=== PATIENT | female | born 1950 | race African-American/Black ===

== ENCOUNTER 2016-10-05 09:56 | Outpatient (CLI) | payer MEDICARE, MEDICAID | END 2016-10-05 23:59 | DX: I10 Essential (primary) hypertension (principal); E78.5 Hyperlipidemia, unspecified; E11.51 Type 2 diabetes mellitus with diabetic peripheral angiopathy without gangrene; D64.9 Anemia, unspecified ==

== ENCOUNTER 2017-03-14 09:05 | Outpatient (CLI) | payer MEDICARE, MEDICAID ==
[2017-03-14 12:37] LABS: BASOPHILS % (AUTO) 0.5 %; EOSINOPHILS # (AUTO) 0.1 10^3/uL (0.0-0.7); EOSINOPHILS % (AUTO) 3.1 %; HCT - HEMATOCRIT 37.7 % (37.0-47.0); HGB - HEMOGLOBIN 12.6 g/dL (12.0-16.0); LYMPHOCYTES # (AUTO) 1.7 10^3/uL (1.5-3.5); LYMPHOCYTES % (AUTO) 35.3 %; MEAN CORPUSCULAR HEMOGLOBIN 26.2 pg (27.0-31.0); MEAN CORPUSCULAR HGB CONC 33.5 g/dL (32.0-36.0); MEAN CORPUSCULAR VOLUME 78.3 fL (81.0-99.0); MEAN PLATELET VOLUME 8.4 fL (7.9-10.8); MONOCYTES # (AUTO) 0.2 10^3/uL (0.0-1.0); MONOCYTES % (AUTO) 4.9 %; NEUTROPHILS # (AUTO) 2.7 10^3/uL (1.5-6.6); NEUTROPHILS % (AUTO) 56.2 %; NUCLEATED RED BLOOD CELLS AUTO 0.1 /100WBC; RED BLOOD COUNT 4.82 10^6/uL (4.20-5.40); RED CELL DISTRIBUTION WIDTH 14.8 % (12.0-15.0); UNCORRECTED WHITE BLOOD COUNT 4.7 x10^3/uL; WHITE BLOOD COUNT 4.7 x10^3/uL (4.8-10.8)
[2017-03-14 12:56] LABS: ALBUMIN/GLOBULIN RATIO 1.2 (1.0-2.2); BILIRUBIN,TOTAL 0.2 mg/dL (0.2-1.0); BUN - BLOOD UREA NITROGEN 12 mg/dL (6-20); CALCIUM 8.9 mg/dL (8.5-10.3); CARBON DIOXIDE - CO2 26 mmol/L (21-32); CHLORIDE 107 mmol/L (101-111); CHOL/HDL RATIO 3.7 (<4.4); CHOLESTEROL 207 mg/dL; CREATININE 0.7 mg/dL (0.4-1.0); GFR - MDRD 101 (>89); GLUCOSE 110 mg/dL (70-100); HDL CHOLESTEROL 56 mg/dL; LDL/HDL RATIO 2.3 (<4.4); POTASSIUM 3.9 mmol/L (3.5-5.0); SODIUM 139 mmol/L (135-145); TOTAL PROTEIN 7.3 g/dL (6.7-8.2); TRIGLYCERIDES 124 mg/dL; VLDL CHOLESTEROL 25 mg/dL
[2017-03-14 13:11] LABS: HEMOGLOBIN A1C 0.56 g/dL
== END 2017-03-14 09:06 | disposition home or self-care (01) ==
LOC: LAB.WCP 09:05
PROVIDERS: ATTEND Family Medicine
DX: E78.5 Hyperlipidemia, unspecified (principal); E11.51 Type 2 diabetes mellitus with diabetic peripheral angiopathy without gangrene; I10 Essential (primary) hypertension
CPT/HCPCS: 36415; 80053; 80061; 83036; 85025

== ENCOUNTER 2017-04-30 09:00 | Outpatient (CLI) | payer MEDICARE, MEDICAID ==
--- NOTE | 2017-05-01 18:53 | Mammography Report ---
DIGITAL SCREENING MAMMOGRAM: 04/30/2017 CLINICAL INDICATION: A 67-year-old for screening. COMPARISON: 04/2016, 04/2015, 03/2014, 08/2012, 03/2011, 10/2009. TECHNIQUE: Routine CC and MLO projections were obtained of the breasts. FINDINGS: The breasts demonstrate scattered fibroglandular densities bilaterally. Coarse and puncta te, typically benign calcifications are present. No suspicious masses, clustered microcalcifications , or regions of architectural distortion are identified. IMPRESSION: BENIGN FINDINGS. RECOMMENDATION: Routine annual screening unless otherwise clinically indicated. BI-RADS category 2, benign findings. STANDARD QUALIFYING STATEMENTS 1. This examination was reviewed with the aid of Computer-Aided Detection (CAD). 2. A negative or benign imaging report should not delay biopsy if clinically suspicious findings are present. Consider surgical consultation if warranted. More than 5% of cancers are not identified by i maging. 3. Dense breasts may obscure an underlying neoplasm. JOB #: [id number] EXT JOB #:[id number]
== END 2017-04-30 09:01 | disposition home or self-care (01) ==
LOC: DI 09:00
PROVIDERS: ATTEND Family Medicine
DX: Z12.31 Encounter for screening mammogram for malignant neoplasm of breast (principal)
CPT/HCPCS: 77067

== ENCOUNTER 2017-12-23 08:00 | Outpatient (CLI) | payer MEDICARE, MEDICAID ==
[2017-12-23 12:50] LABS: ALBUMIN 3.7 g/dL (3.2-5.5); ALBUMIN/GLOBULIN RATIO 1.1 (1.0-2.2); ALKALINE PHOSPHATASE 96 IU/L (42-121); ALT ALANINE AMINOTRANSFERASE 16 IU/L (10-60); AST ASPARTATE AMINOTRANSFERASE 21 IU/L (10-42); BILIRUBIN,TOTAL 0.5 mg/dL (0.2-1.0); BUN - BLOOD UREA NITROGEN 15 mg/dL (6-20); CALCIUM 8.6 mg/dL (8.5-10.3); CARBON DIOXIDE - CO2 25 mmol/L (21-32); CHLORIDE 105 mmol/L (101-111); CHOL/HDL RATIO 3.7 (<4.4); CHOLESTEROL 203 mg/dL; CREATININE 0.6 mg/dL (0.4-1.0); GFR - MDRD 120 (>89); GLUCOSE 102 mg/dL (70-100); HDL CHOLESTEROL 55 mg/dL; LDL CHOLESTEROL,CALCULATED 131 mg/dL; LDL/HDL RATIO 2.4 (<4.4); SODIUM 139 mmol/L (135-145); TOTAL PROTEIN 7.1 g/dL (6.7-8.2); VLDL CHOLESTEROL 17 mg/dL
[2017-12-23 12:53] LABS: BASOPHILS % (AUTO) 0.6 %; EOSINOPHILS # (AUTO) 0.1 10^3/uL (0.0-0.7); EOSINOPHILS % (AUTO) 2.7 %; HGB - HEMOGLOBIN 11.5 g/dL (12.0-16.0); LYMPHOCYTES # (AUTO) 1.9 10^3/uL (1.5-3.5); LYMPHOCYTES % (AUTO) 40.8 %; MEAN CORPUSCULAR HEMOGLOBIN 26.5 pg (27.0-31.0); MEAN CORPUSCULAR HGB CONC 33.8 g/dL (32.0-36.0); MEAN CORPUSCULAR VOLUME 78.4 fL (81.0-99.0); MEAN PLATELET VOLUME 8.3 fL (7.9-10.8); MONOCYTES # (AUTO) 0.3 10^3/uL (0.0-1.0); MONOCYTES % (AUTO) 6.4 %; NEUTROPHILS # (AUTO) 2.3 10^3/uL (1.5-6.6); NEUTROPHILS % (AUTO) 49.5 %; PLT - PLATELET COUNT 276 10^3/uL (130-450); RED BLOOD COUNT 4.33 10^6/uL (4.20-5.40); RED CELL DISTRIBUTION WIDTH 14.6 % (12.0-15.0); WHITE BLOOD COUNT 4.7 x10^3/uL (4.8-10.8)
[2017-12-23 12:57] LABS: HB2 TOTAL 12.6 g/dL; HEMOGLOBIN A1C 0.53 g/dL
== END 2017-12-23 08:01 | disposition home or self-care (01) ==
LOC: LAB.WCP 08:00
PROVIDERS: ATTEND Family Medicine
DX: I10 Essential (primary) hypertension (principal); E78.5 Hyperlipidemia, unspecified; E11.51 Type 2 diabetes mellitus with diabetic peripheral angiopathy without gangrene
CPT/HCPCS: 36415; 80053; 80061; 82043; 83036; 83721; 85025

== ENCOUNTER 2018-05-15 08:36 | Outpatient (CLI) | payer MEDICARE, MEDICAID ==
--- NOTE | 2018-05-19 08:04 | DEXA Report ---
Reason: POSTMENOPAUSAL STATUS Procedure Date: 05/15/2018 Accession Number: [id number] / [id number] Procedure: DEX - Dexa Spine and/or Hip CPT Code: FULL RESULT: EXAM: Dexa Spine and/or Hip DATE: 05/15/2018 9:01 AM CLINICAL HISTORY: POSTMENOPAUSAL STATUS TECHNIQUE: Dual energy x-ray absorptiometry (DXA) was performed on a [email or web address] System. Regions measured are the AP Spine, femoral neck, and if needed forearm. COMPARISON: 05/14/2016. In accordance with the International Society for Clinical Densitometry (ISCD) guidelines, data from previous exams may be reanalyzed using current recommendations and techniques. This is done to allow a more accurate basis for comparison with the current study. FINDINGS: The data for the lumbar spine is as follows: BMD (g/cm/cm) T-SCORE Z-SCORE REGION L1 1.194 0.5 0.4 L2 1.332 1.1 0.9 L3 1.365 1.4 1.2 L4 1.381 1.5 1.3 TOTAL 1.315 1.1 0.9 NOTE: All evaluable vertebrae are used for classification The data for the hip is as follows: BMD (g/cm/cm) T-SCORE Z-SCORE REGION Neck 0.909 -0.9 -0.9 TOTAL 1.003 0.0 -0.4 NOTE: The femoral neck or total proximal femur, whichever is lowest, is used for classification. DXA RESULTS SUMMARY: Spine SCAN DATE AGE BMD CHANGE VS CHANGE VS PREVIOUS PREVIOUS % 4/15[birth year]2018 [age] 1.315 0.051* 4.0* 05/14/2016 66.3 1.264 * Denotes significant change at the 95% confidence level. Denotes dissimilar scan types or analysis methods. DXA RESULTS SUMMARY: Hip SCAN DATE AGE BMD CHANGE VS CHANGE VS PREVIOUS PREVIOUS % [birth year][age]15/2018 68.3 1.003 -0.007 -0.7 05/14/2016 66.3 1.010 * Denotes significant change at the 95% confidence level. Denotes dissimilar scan types or analysis methods. IMPRESSION: THE WHO CLASSIFICATION BASED ON THE INTERNATIONAL REFERENCE STANDARD IS NORMAL. THE FRACTURE RISK IS NOT INCREASED. RECOMMENDATION: Patients with diagnosis of osteoporosis or osteopenia should have regular bone mineral density assessment. For those eligible for Medicare, routine testing is allowed once every 2 years. Testing frequency can be increased for patients who have rapidly progressing disease or for those who are receiving medical therapy to restore bone mass. COMMENT: World Health Organization (WHO) definitions for osteoporosis and osteopenia: NORMAL BMD: T-score at -1.0 or higher, fracture risk is low OSTEOPENIA BMD: T-score between -1.0 and -2.5, fracture risk is increased. OSTEOPOROSIS BMD: T-score at -2.5 or lower, fracture risk is high. National Osteoporosis Foundation recommends: 1. Obtain adequate dietary calcium (at least 1200 mg per day) and vitamin D (400-800 international units per day). 2. Participate, as appropriate, in regular weightbearing and muscle-strengthening exercise. 3. Avoid tobacco use and reduce alcohol and caffeine intake. 4. For more detailed information see the website at www.NOF.org.
== END 2018-05-15 08:37 | disposition home or self-care (01) ==
LOC: DI 08:36
PROVIDERS: ATTEND Physician Assistant
DX: Z78.0 Asymptomatic menopausal state (principal)
CPT/HCPCS: 77080

== ENCOUNTER 2018-06-09 10:31 | Outpatient (CLI) | payer MEDICARE, MEDICAID ==
--- NOTE | 2018-06-10 15:31 | Mammography Report ---
Reason: SCREENING MAMMO Procedure Date: 06/09/2018 Accession Number: [id number] / [id number] Procedure: MGN - Screening Mammo Dig Bilat CPT Code: FULL RESULT: EXAM: Screening Mammo Dig Bilat DATE: 06/09/2018 10:50 AM CLINICAL HISTORY: Routine screening TECHNIQUE: Bilateral CC and MLO views were obtained. COMPARISON: 04/30/2017, 05/08/2016, 05/03/2015 and 04/07/2014 FINDINGS: There are scattered fibroglandular densities. There is no significant interval change. No suspicious masses, clustered microcalcifications, or regions of architectural distortion are identified. IMPRESSION: Negative. RECOMMENDATION: Routine annual screening unless otherwise clinically indicated. BIRADS CATEGORY 1: Negative STANDARD QUALIFYING STATEMENTS: 1. This examination was reviewed with the aid of Computer-Aided Detection (CAD). 2. A negative or benign imaging report should not delay biopsy if clinically suspicious findings are present. Consider surgical consultation if warrented. More than 5% of cancers are not identified by imaging. 3. Dense breasts may obscure an underlying neoplasm.
== END 2018-06-09 10:32 | disposition home or self-care (01) ==
LOC: DI.N 10:31
DX: Z12.31 Encounter for screening mammogram for malignant neoplasm of breast (principal)
CPT/HCPCS: 77067

== ENCOUNTER 2018-12-17 11:29 | Outpatient (CLI) | payer MEDICAID, MEDICARE ==
[2018-12-17 18:48] LABS: BASOPHILS % (AUTO) 0.9 %; EOSINOPHILS # (AUTO) 0.1 10^3/uL (0.0-0.7); EOSINOPHILS % (AUTO) 3.4 %; HGB - HEMOGLOBIN 12.5 g/dL (12.0-16.0); LYMPHOCYTES # (AUTO) 1.7 10^3/uL (1.5-3.5); LYMPHOCYTES % (AUTO) 39.3 %; MEAN CORPUSCULAR HGB CONC 32.4 g/dL (32.0-36.0); MEAN CORPUSCULAR VOLUME 80.4 fL (81.0-99.0); MEAN PLATELET VOLUME 8.7 fL (7.9-10.8); MONOCYTES # (AUTO) 0.2 10^3/uL (0.0-1.0); MONOCYTES % (AUTO) 5.1 %; NEUTROPHILS # (AUTO) 2.3 10^3/uL (1.5-6.6); NEUTROPHILS % (AUTO) 51.3 %; PLT - PLATELET COUNT 279 10^3/uL (130-450); RED BLOOD COUNT 4.79 10^6/uL (4.20-5.40); RED CELL DISTRIBUTION WIDTH 14.9 % (12.0-15.0); WHITE BLOOD COUNT 4.4 x10^3/uL (4.8-10.8)
[2018-12-17 19:09] LABS: HB2 TOTAL 13.2 g/dL; HEMOGLOBIN A1C 0.54 g/dL; HEMOGLOBIN A1C % 5.9 % (4.6-6.2)
[2018-12-17 19:17] LABS: ALBUMIN 3.8 g/dL (3.2-5.5); ALBUMIN/GLOBULIN RATIO 1.1 (1.0-2.2); ALKALINE PHOSPHATASE 95 IU/L (42-121); ALT ALANINE AMINOTRANSFERASE 18 IU/L (10-60); AST ASPARTATE AMINOTRANSFERASE 22 IU/L (10-42); BILIRUBIN,TOTAL 0.3 mg/dL (0.2-1.0); BUN - BLOOD UREA NITROGEN 12 mg/dL (6-20); CALCIUM 8.7 mg/dL (8.5-10.3); CARBON DIOXIDE - CO2 27 mmol/L (21-32); CHLORIDE 103 mmol/L (101-111); CHOL/HDL RATIO 3.3 (<4.4); CHOLESTEROL 221 mg/dL; CREATININE 0.8 mg/dL (0.4-1.0); GFR - MDRD 86 (>89); GLUCOSE 96 mg/dL (70-100); HDL CHOLESTEROL 68 mg/dL; LDL CHOLESTEROL,CALCULATED 133 mg/dL; SODIUM 137 mmol/L (135-145); TOTAL PROTEIN 7.4 g/dL (6.7-8.2); VLDL CHOLESTEROL 20 mg/dL
== END 2018-12-17 11:30 | disposition home or self-care (01) ==
LOC: LAB.WCP 11:29
PROVIDERS: ATTEND Family Medicine
DX: E78.5 Hyperlipidemia, unspecified (principal); E11.51 Type 2 diabetes mellitus with diabetic peripheral angiopathy without gangrene; I10 Essential (primary) hypertension; I63.9 Cerebral infarction, unspecified; D64.9 Anemia, unspecified; G40.209 Localization-related (focal) (partial) symptomatic epilepsy and epileptic syndromes with complex partial seizures, not intractable, without status epilepticus
CPT/HCPCS: 36415; 80053; 80061; 83036; 83721; 84443; 85025

== ENCOUNTER 2018-12-23 09:21 | Outpatient (CLI) | payer MEDICARE ==
[2018-12-23 13:31] LABS: % IRON SATURATION 25 % (20-50); IRON 65 ug/dL (28-170); TOTAL IRON BINDING CAPACITY 259 ug/dL (250-450); TRANSFERRIN 185 mg/dL (192-382)
== END 2018-12-23 09:22 | disposition home or self-care (01) ==
LOC: LAB.WCP 09:21
PROVIDERS: ATTEND Family Medicine
DX: D64.9 Anemia, unspecified (principal)
CPT/HCPCS: 36415; 82728; 83540; 84466

== ENCOUNTER 2019-03-25 08:00 | Outpatient (CLI) | payer MEDICARE ==
[2019-03-25 12:29] LABS: BASOPHILS % (AUTO) 0.7 %; EOSINOPHILS % (AUTO) 2.4 %; HGB - HEMOGLOBIN 12.4 g/dL (12.0-16.0); LYMPHOCYTES % (AUTO) 51.9 %; MEAN CORPUSCULAR HEMOGLOBIN 26.6 pg (27.0-31.0); MEAN CORPUSCULAR HGB CONC 34.2 g/dL (32.0-36.0); MEAN CORPUSCULAR VOLUME 77.7 fL (81.0-99.0); MEAN PLATELET VOLUME 10.3 fL (7.9-10.8); MONOCYTES % (AUTO) 11.7 %; NEUTROPHILS % (AUTO) 33.1 %; PLT - PLATELET COUNT 256 10^3/uL (130-450); RED BLOOD COUNT 4.67 10^6/uL (4.20-5.40); RED CELL DISTRIBUTION WIDTH 14.6 % (12.0-15.0); WHITE BLOOD COUNT 4.2 x10^3/uL (4.8-10.8)
[2019-03-25 12:36] LABS: ABNORMAL LYMPHS % (MANUAL) 0 %
[2019-03-25 12:46] LABS: ALBUMIN 3.8 g/dL (3.2-5.5); ALBUMIN/GLOBULIN RATIO 1.1 (1.0-2.2); ALKALINE PHOSPHATASE 104 IU/L (42-121); ALT ALANINE AMINOTRANSFERASE 22 IU/L (10-60); AST ASPARTATE AMINOTRANSFERASE 23 IU/L (10-42); BILIRUBIN,TOTAL 0.5 mg/dL (0.2-1.0); BUN - BLOOD UREA NITROGEN 12 mg/dL (6-20); CALCIUM 8.9 mg/dL (8.5-10.3); CARBON DIOXIDE - CO2 26 mmol/L (21-32); CHLORIDE 108 mmol/L (101-111); CHOL/HDL RATIO 3.9 (<4.4); CHOLESTEROL 220 mg/dL; CREATININE 0.7 mg/dL (0.4-1.0); GFR - MDRD 100 (>89); GLUCOSE 106 mg/dL (70-100); HDL CHOLESTEROL 57 mg/dL; LDL CHOLESTEROL,CALCULATED 144 mg/dL; LDL/HDL RATIO 2.5 (<4.4); SODIUM 142 mmol/L (135-145); TOTAL PROTEIN 7.3 g/dL (6.7-8.2); VLDL CHOLESTEROL 19 mg/dL
[2019-03-25 13:09] LABS: HB2 TOTAL 12.9 g/dL; HEMOGLOBIN A1C 0.53 g/dL; HEMOGLOBIN A1C % 5.9 % (4.6-6.2)
[2019-03-25 13:46] LABS: BAND NEUTROPHILS % (MANUAL) 1 %; EOSINOPHILS # (MANUAL) 0.1 10^3/uL (0-0.7); LYMPHOCYTES # (MANUAL) 2.3 10^3/uL (1.5-3.5); LYMPHOCYTES % (MANUAL) 54 %; MONOCYTES # (MANUAL) 0.1 10^3/uL (0.0-1.0)
[2019-03-25 13:51] LABS: DIFFERENTIAL COMMENT MANUAL DIFFERENTIAL; PLATELET ESTIMATE, MANUAL NORMAL (130-450,000) (NORMAL); PLATELET MORPHOLOGY NORMAL APPEARANCE (NORMAL)
== END 2019-03-25 23:59 | disposition home or self-care (01) ==
LOC: LAB.WCP 08:00
PROVIDERS: ATTEND Family Medicine
DX: I10 Essential (primary) hypertension (principal); E78.5 Hyperlipidemia, unspecified; E11.51 Type 2 diabetes mellitus with diabetic peripheral angiopathy without gangrene
CPT/HCPCS: 36415; 80053; 80061; 82043; 83036; 83721; 85025

== ENCOUNTER 2019-04-06 08:00 | Outpatient (CLI) | payer MEDICARE ==
[2019-04-06 19:06] LABS: BASOPHILS % (AUTO) 0.5 %; EOSINOPHILS # (AUTO) 0.1 10^3/uL (0.0-0.7); EOSINOPHILS % (AUTO) 2.3 %; HGB - HEMOGLOBIN 11.8 g/dL (12.0-16.0); LYMPHOCYTES # (AUTO) 2.6 10^3/uL (1.5-3.5); LYMPHOCYTES % (AUTO) 46.4 %; MEAN CORPUSCULAR HGB CONC 32.4 g/dL (32.0-36.0); MEAN CORPUSCULAR VOLUME 80.2 fL (81.0-99.0); MEAN PLATELET VOLUME 10.6 fL (7.9-10.8); MONOCYTES # (AUTO) 0.3 10^3/uL (0.0-1.0); MONOCYTES % (AUTO) 5.7 %; NEUTROPHILS # (AUTO) 2.6 10^3/uL (1.5-6.6); NEUTROPHILS % (AUTO) 45.1 %; PLT - PLATELET COUNT 297 10^3/uL (130-450); RED BLOOD COUNT 4.54 10^6/uL (4.20-5.40); RED CELL DISTRIBUTION WIDTH 15.5 % (12.0-15.0); WHITE BLOOD COUNT 5.7 x10^3/uL (4.8-10.8)
[2019-04-06 19:20] LABS: % IRON SATURATION 33 % (20-50); IRON 88 ug/dL (28-170); TOTAL IRON BINDING CAPACITY 263 ug/dL (250-450); TRANSFERRIN 188 mg/dL (192-382)
== END 2019-04-06 23:59 | disposition home or self-care (01) ==
LOC: LAB.WCP 08:00
PROVIDERS: ATTEND Family Medicine
DX: D64.9 Anemia, unspecified (principal)
CPT/HCPCS: 36415; 83540; 84466; 85025

== ENCOUNTER 2019-04-16 08:00 | Outpatient (CLI) | payer MEDICARE ==
[2019-04-16 13:09] LABS: FOLATE 17.59 ng/mL (5.90 - >24.8)
[2019-04-16 13:36] LABS: CARBAMAZEPINE (TEGRETOL) 6.7 ug/mL
== END 2019-04-16 23:59 | disposition home or self-care (01) ==
LOC: LAB.WCP 08:00
PROVIDERS: ATTEND Family Medicine
DX: Z79.899 Other long term (current) drug therapy (principal); G62.9 Polyneuropathy, unspecified; G40.209 Localization-related (focal) (partial) symptomatic epilepsy and epileptic syndromes with complex partial seizures, not intractable, without status epilepticus
CPT/HCPCS: 36415; 80156; 82607; 82746

== ENCOUNTER 2019-06-04 14:41 | Outpatient (CLI) | payer MEDICARE ==
--- NOTE | 2019-06-05 09:30 | Mammography Report ---
Reason: ROUTINE MAMMO Procedure Date: 06/04/2019 Accession Number: [id number] / [id number] Procedure: MGN - Screening Mammo Dig Bilat CPT Code: FULL RESULT: EXAM: Screening Mammo Dig Bilat DATE: 06/04/2019 3:00 PM CLINICAL HISTORY: Screening encounter. History of early menses. TECHNIQUE: (B) - Bilateral CC and MLO views were obtained. COMPARISON: 06/09/2018 through 11/11/2009. PARENCHYMAL PATTERN: (A) - The breast(s) demonstrate(s) scattered fibroglandular densities. FINDINGS: There are coarse typically benign calcifications. A left breast axillary tail intramammary lymph node demonstrates long-term stability, typically benign. There are no suspicious masses, calcifications, or areas of distortion. IMPRESSION: Benign findings. BI-RADS category 2. RECOMMENDATION: (ANNUAL) - Recommend routine annual screening mammography. BI-RADS CATEGORY: (2) - Benign Findings. STANDARD QUALIFYING STATEMENTS: 1. This examination was not reviewed with the aid of Computer-Aided Detection (CAD). 2. A negative or benign imaging report should not preclude biopsy if clinically suspicious findings are present. 3. Dense breasts may obscure an underlying neoplasm. 4. This examination was reviewed without the aid of 3D breast imaging (tomosynthesis).
== END 2019-06-04 14:42 | disposition home or self-care (01) ==
LOC: DI.N 14:41
DX: Z12.31 Encounter for screening mammogram for malignant neoplasm of breast (principal)
CPT/HCPCS: 77067

== ENCOUNTER 2019-07-03 10:19 | Outpatient (CLI) | payer MEDICARE ==
[2019-07-03 12:56] LABS: BASOPHILS % (AUTO) 0.4 %; EOSINOPHILS # (AUTO) 0.2 10^3/uL (0.0-0.7); HGB - HEMOGLOBIN 12.2 g/dL (12.0-16.0); LYMPHOCYTES # (AUTO) 1.9 10^3/uL (1.5-3.5); LYMPHOCYTES % (AUTO) 39.6 %; MEAN CORPUSCULAR HEMOGLOBIN 26.9 pg (27.0-31.0); MEAN CORPUSCULAR HGB CONC 33.9 g/dL (32.0-36.0); MEAN CORPUSCULAR VOLUME 79.3 fL (81.0-99.0); MEAN PLATELET VOLUME 10.4 fL (7.9-10.8); MONOCYTES # (AUTO) 0.2 10^3/uL (0.0-1.0); MONOCYTES % (AUTO) 4.6 %; NEUTROPHILS # (AUTO) 2.4 10^3/uL (1.5-6.6); NEUTROPHILS % (AUTO) 51.2 %; PLT - PLATELET COUNT 289 10^3/uL (130-450); RED BLOOD COUNT 4.54 10^6/uL (4.20-5.40); RED CELL DISTRIBUTION WIDTH 14.3 % (12.0-15.0); WHITE BLOOD COUNT 4.8 x10^3/uL (4.8-10.8)
[2019-07-03 13:18] LABS: PLATELET ESTIMATE, MANUAL NORMAL (130-450,000) (NORMAL); PLATELET MORPHOLOGY NORMAL APPEARANCE (NORMAL); RBC MORPHOLOGY (MULTIPLE) NORMAL APPEARANCE (NORMAL)
[2019-07-03 13:55] LABS: ALBUMIN 3.7 g/dL (3.2-5.5); ALBUMIN/GLOBULIN RATIO 1.2 (1.0-2.2); ALKALINE PHOSPHATASE 94 IU/L (42-121); ALT ALANINE AMINOTRANSFERASE 18 IU/L (10-60); AST ASPARTATE AMINOTRANSFERASE 18 IU/L (10-42); BILIRUBIN,TOTAL 0.4 mg/dL (0.2-1.0); BUN - BLOOD UREA NITROGEN 13 mg/dL (6-20); CALCIUM 8.7 mg/dL (8.5-10.3); CARBON DIOXIDE - CO2 29 mmol/L (21-32); CHLORIDE 104 mmol/L (101-111); CHOL/HDL RATIO 3.7 (<4.4); CHOLESTEROL 221 mg/dL; CREATININE 0.7 mg/dL (0.4-1.0); GFR - MDRD 100 (>89); GLUCOSE 109 mg/dL (70-100); HDL CHOLESTEROL 60 mg/dL; LDL CHOLESTEROL,CALCULATED 145 mg/dL; LDL/HDL RATIO 2.4 (<4.4); SODIUM 139 mmol/L (135-145); TOTAL PROTEIN 6.9 g/dL (6.7-8.2); VLDL CHOLESTEROL 16 mg/dL
[2019-07-03 14:02] LABS: HB2 TOTAL 12.1 g/dL; HEMOGLOBIN A1C 0.53 g/dL; HEMOGLOBIN A1C % 6.2 % (4.6-6.2)
== END 2019-07-03 23:59 | disposition home or self-care (01) ==
LOC: LAB.WCP 10:19
PROVIDERS: ATTEND Family Medicine
DX: I10 Essential (primary) hypertension (principal); E78.5 Hyperlipidemia, unspecified; E11.59 Type 2 diabetes mellitus with other circulatory complications
CPT/HCPCS: 36415; 80053; 80061; 82043; 82570; 83036; 83721; 85025

== ENCOUNTER 2020-02-24 14:20 | Outpatient (CLI) | payer MEDICARE ==
[2020-02-24 19:13] LABS: CALCIUM 8.8 mg/dL (8.5-10.3); CREATININE 0.7 mg/dL (0.4-1.0); HB2 TOTAL 12.9 g/dL; HEMOGLOBIN A1C 0.52 g/dL; HEMOGLOBIN A1C % 5.8 % (4.6-6.2)
== END 2020-02-24 14:21 | disposition home or self-care (01) ==
LOC: LAB.WCP 14:20
PROVIDERS: ATTEND Nurse Practitioner
DX: I10 Essential (primary) hypertension (principal); E11.59 Type 2 diabetes mellitus with other circulatory complications
CPT/HCPCS: 36415; 80048; 83036

== ENCOUNTER 2020-09-15 08:23 | Outpatient (CLI) | payer MEDICARE ==
--- NOTE | 2020-09-16 09:53 | Mammography Report ---
BILATERAL DIGITAL SCREENING MAMMOGRAM 3D/2D: 09/15/2020 CLINICAL: Routine screening. Comparison is made to exams dated: 06/04/2019 mammogram, 06/09/2018 mammogram, and 04/30/2017 mammogr am - [facility]. There are scattered fibroglandular elements in both breasts. No significant masses, calcifications, or other findings are seen in either breast. There has been no significant interval change. IMPRESSION: NEGATIVE There is no mammographic evidence of malignancy. A 1 year screening mammogram is recommended. This exam was interpreted at Station ID: [id number]. NOTE: For mammograms, a report in lay terms will be sent to the patient. Approximately 15% of breast malignancies will not be visualized mammographically. In the management of a palpable breast mass, a negative mammogram must not discourage biopsy of a clinically suspicious lesion. Electronically Signed By: Jean Smith M.D. ar/penrad:09/15/2020 10:00:35 ACR BI-RADS Category 1: Negative 3341F PARENCHYMAL PATTERN: (A) - The breast(s) demonstrate(s) scattered fibroglandular densities. BI-RADS CATEGORY: (1) - 1 RECOMMENDATION: (ANNUAL) - Recommend routine annual screening mammography. [id number] 1 year screening LATERALITY: (B)
== END 2020-09-15 08:24 | disposition home or self-care (01) ==
LOC: DI.N 08:23
PROVIDERS: ATTEND Nurse Practitioner
DX: Z12.31 Encounter for screening mammogram for malignant neoplasm of breast (principal)

== ENCOUNTER 2021-10-31 08:59 | Outpatient (CLI) | payer MEDICARE, MEDICAID ==
--- NOTE | 2021-11-01 08:14 | Mammography Report ---
BILATERAL DIGITAL SCREENING MAMMOGRAM 3D/2D: 10/31/2021 CLINICAL: Routine screening. Comparison is made to exams dated: 09/15/2020 mammogram, 06/04/2019 mammogram, 06/09/2018 mammogram, 04/30/2017 mammogram, 05/08/2016 mammogram, and 05/03/2015 mammogram - [facility]. Th ere are scattered fibroglandular elements in both breasts. There are benign calcifications in both breasts. No significant masses, calcifications, or other findings are seen in either breast. There has been no significant interval change. IMPRESSION: BENIGN There is no mammographic evidence of malignancy. A 1 year screening mammogram is recommended. This exam was interpreted at Station ID: [id number]. NOTE: For mammograms, a report in lay terms will be sent to the patient. Approximately 15% of breast malignancies will not be visualized mammographically. In the management of a palpable breast mass, a negative mammogram must not discourage biopsy of a clinically suspicious lesion. Electronically Signed By: Jose Angel Dsouza M.D. ddnancy/penchago:10/31/2021 11:52:46 ACR BI-RADS Category 2: Benign Finding(s) 3342F PARENCHYMAL PATTERN: (A) - The breast(s) demonstrate(s) scattered fibroglandular densities. BI-RADS CATEGORY: (2) - 2 RECOMMENDATION: (ANNUAL) - Recommend routine annual screening mammography. [id number] 1 year screening LATERALITY: (B)
== END 2021-10-31 09:00 | disposition home or self-care (01) ==
LOC: DI.N 08:59
DX: Z12.31 Encounter for screening mammogram for malignant neoplasm of breast (principal)

== ENCOUNTER 2022-01-11 08:37 | Outpatient (CLI) | payer MEDICARE, MEDICAID ==
[2022-01-11 09:28] VITALS: BP 124/80
--- NOTE | 2022-01-11 09:28 | SLEEP CARE CONSULTATION ---
Information from patient questionnaire entered by Majo Palacios MA. I have reviewed and concur with the information entered by Majo Palacios MA. This document represents the service I personally performed and the decisions made by , Nia Watson ARNP. History of Present Illness Service Date and Time: 01/11/2022 0837 Reason for Visit: New patient (ONSET 11/17/21, PREVIOUSLY ON CPAP, ), Previously diagnosed sleep apnea, Re-establish care Chief Complaint: reports: Snoring, Observed pauses in breathing Date of Onset: 2014 Usual bedtime: 10 PM Time it takes to fall asleep: 5-10 minutes Snores at night: Yes Observed to quit breathing while asleep: Yes Sleeps alone due to snoring: No Number of times waking at night: 3 Reasons for waking at night: reports: Bathroom. denies: Choking, Snoring, Gasping for air Toss, Turn, or Twitch while sleeping: No Recalls having dreams: Yes Usually gets out of bed at: 0600 Feels refreshed in the morning: Yes Morning headache: No Sleepy or fatigued during the day: No Ever fallen asleep while driving: No Takes day naps: No Dreams during day naps: No Prior sleep studies: Yes Year and Where: [facility] 07/2015 Type of Sleep Study: Polysomnography Additional HPI information: GM SCHERER was previously diagnosed to have moderate, AHI 25.3, obstructive sleep apnea-hypopnea syndrome and comes in today to re-establish care. Patient states she has not been using CPAP since at least 2015. She remarried 1 to 2 years ago and her new tells her she snores loudly and has had some pauses in breathing when sleeping for which he is concerned. Patient comes back today to find out if she still needs a CPAP or other treatment for sleep apnea. - Parasomnia Symptoms Ever been unable to move upon waking from sleep: No Walks in sleep: No Talks in sleep: No Ever acted out dreams in sleep: No Ever felt weak in the knees when startled or emotional: No Bothered by creepy, crawly, restless sensations in legs: No Problems with memory or concentration: No Subjective Initial [place] Sleepiness Scale score: 5 (12/2021) Past Medical History Past Medical History: reports: Hypertension, Stroke (2004), Other (EPILEPSY) Social History The patient's occupation is a RE. Patient is and lives in . Have you smoked in the past 12 months: No Cigarettes per day (20/pack): 20 Years of smokin Quit date: 1968 Smoking Pack Years: 14.0 Alcohol use: No Caffeine use: No Family History Family history of sleep disordered breathing: No Allergies and Home Medications Drug allergies reviewed: Yes (Sulfa antibiotics) Home medication list reviewed: Yes Allergy and home medication list: Allergies Sulfa (Sulfonamide Antibiotics) Allergy (Verified 12/09/13 09:45) Hives Medications: CArbamazepine, 200 mg Losartan 25 mg Review of Systems Weight gain over past 5 years: 10 Cardiovascular: reports: leg or foot swelling Neurological: reports: seizure Physical Exam Vital signs obtained and entered by: VERITO PALMA Blood Pressure: 124/80 (RESP 18, PULSE 62, RIGHT) Cuff size: wrist Heart Rate: 62 O2 Saturation: 97 (N95 MASK) Height: 5 ft 4 in Weight: 221 lb 8 oz Body Mass Index: 38.0 BMI Classification: Obese Neck circumference: 15 (INCHES) Heart: regular rate and rhythm Lungs: clear bilaterally Impression and Plan 1. Suspected Obstructive Sleep Apnea-Hypopnea Syndrome, as previously diagnosed and as suggested by a history of loud and irregular snoring and observed cessation of breath while asleep. I recommend proceeding to polysomnography to confirm the diagnosis and to assess severity. If the patient has significant sleep disordered breathing, a manual CPAP titration study will also be performed to find the optimal treatment pressure. I informed the patient of what the sleep studies involve and after some discussion, obtained agreement to proceed. The pathophysiology of obstructive sleep apnea-hypopnea syndrome was discussed with the patient and health risks of cardiovascular and cerebrovascular disease if not treated. Risks of drowsy driving discussed in detail and patient advised to avoid long distance driving and to toe puller at the first sign of drowsiness. Patient agreed to plan. * Schedule polysomnography * Avoid long distance driving or driving when feeling sleepy. * Avoid sedative and muscle relaxant around bedtime. * Attempt to lose weight. * Review instructions provided by trained office staff on how to prepare for the sleep study. * Return for follow-up after sleep study completed. Counseling Topics: Weight loss health impact Visit Type: In Office Time Spent with Patient (minutes): 28 Provider Statement: I spent 100% of the Face to Face Visit with the patient with greater than 50% spent counseling the patient and coordination of care.
== END 2022-01-11 08:38 | disposition home or self-care (01) ==
LOC: SC 08:37
PROVIDERS: ATTEND Nurse Practitioner Family
DX: R06.81 Apnea, not elsewhere classified (principal); R06.83 Snoring; Z87.891 Personal history of nicotine dependence; E66.9 Obesity, unspecified; Z68.38 Body mass index [BMI] 38.0-38.9, adult
CPT/HCPCS: 99202; G0463; 99212

== ENCOUNTER 2022-02-01 09:32 | Outpatient (CLI) | payer MEDICARE, MEDICAID ==
[2022-02-01 10:06] VITALS: BP 132/78
--- NOTE | 2022-02-01 10:06 | SLEEP CARE CONSULTATION ---
Information from patient questionnaire entered by Majo Palacios MA. I have reviewed and concur with the information entered by Majo Palacios MA. This document represents the service I personally performed and the decisions made by , Nia Watson ARNP. History of Present Illness Service Date and Time: 02/01/2022 0932 Initial [place] Sleepiness Scale score: 5 (12/2021) Current [place] Sleepiness Scale score: 4 (02/01/2022) Additional HPI information: GM SCHERER returns for follow up and results of the recently performed home sleep study. I explained the pathophysiology behind obstructive sleep apnea. We then spent quite a bit of time discussing different treatment options. For mild obstructive sleep apnea, surgery and oral appliance are alternatives to nasal CPAP therapy but in moderate or severe cases, nasal CPAP is the most effective and reliable treatment. Because apnea is primarily in supine position, then positional management therapy could be effective. Methods discussed such as positioning with pillows to prevent supine sleep. I reviewed the impact of weight changes on sleep apnea and strongly recommended losing weight. After some discussion, the patient opted to go with the nasal CPAP therapy. Nasal autoCPAP set at 4-15 cmH20 will be ordered with rationale explained. A manual titration study will be ordered if unable to find optimal pressure with office adjustments. I explained how CPAP machine works and what to expect when using the machine. Using CPAP every night in order to get used to it was emphasized. Patient advised to put CPAP mask on before getting into bed so as not to fall asleep without CPAP. To assist acclimation to CPAP use, it could also be used for a short time during day while reading or watching TV. The patient was instructed to call the CPAP supplier to discuss any mechanical problem that may occur. If the mask given is uncomfortable or is difficult to keep on through the night even with adjustment, contact the CPAP supplier as many will replace with anoth er mask style if notified before 30 days. If snoring or perceives is not getting enough air or too much air from the machine, notify this office. Patient was cautioned about risks of drowsy driving until sleepiness symptoms resolve. Sleep Study - Results Type of Sleep Study: Home sleep study (F/U HOME STUDY, 01/16/2022 [facility], [place], [place],) Prior sleep studies: Yes Year and Where: [facility] 07/2015 Polysomnography/Home Sleep Study results: Physician Impression: The quality of the study is good. The length of the study is adequate (> 240 minutes). Please also see the tabulated and graphic data. 1. Obstructive Sleep Apnea-Hypopnea (ICD-10 G47.33), moderate, with an AHI of 26.4/hr and del SaO2 of 69%. During the study, the patient had 71 apneas (71 obstructive, 0 central, 0 mixed) and 135 hypopneas. The longest episode lasted 104.5 seconds. The respiratory events occurred independently of sleep stage and body position (supine AHI was 29.1 and non-supine, 25.09). 2. Hypoxemia (ICD-10 R09.02), moderate, with the lowest oxygen saturation of 69 % and 20.5 minutes with SaO2 under 90%. Baseline oxygen saturation was normal (Average oxygen saturation was 93%). Allergies and Home Medications Known drug allergies: Yes (sulfa) Home medication list reviewed: Yes (no changes) Allergy and home medication list: Allergies Sulfa (Sulfonamide Antibiotics) Allergy (Verified 12/09/13 09:45) Hives Review of Systems Review of systems same as previous: Yes (no changes) Physical Exam Vital signs obtained and entered by: VERITO PALMA Blood Pressure: 132/78 (pulse 64, resp 18, rigt, ) Heart Rate: 64 O2 Saturation: 99 (mask n95) Height: 5 ft 4 in Weight: 220 lb (cloth) Body Mass Index: 37.8 BMI Classification: Obese Impression and Plan 1. Obstructive Sleep Apnea-Hypopnea Syndrome, moderate, with lowest oxygen saturation of 69%. Obviously this is the cause of the patients symptoms of unrefreshed sleep, and excessive daytime sleepiness. Positive pressure therapy could benefit hypertension, cerebrovascular disease (stroke) and epilepsy. As mentioned above, the patient will be started on nasal autoCPAP therapy with pressure set at 4-15 cmH2O. Compliance guidelines also reviewed. A copy of compliance guidelines will be given for reference at check out. Because patient had a very low oxygen saturation during the study I will order her CPAP setup urgently. 2. Hypoxemia, moderate, with the lowest oxygen saturation of 69 % and 20.5 minutes with SaO2 under 90%. Her baseline oxygen saturation was normal with an average oxygen saturation of 93%. * Nasal auto CPAP therapy, pressure at 4-15 cm H2O. * Attempt to lose weight. * Avoid alcohol consumption near bedtime. * Avoid supine sleep until using CPAP. * The patient is again cautioned about driving until sleepiness completely resolves. * Return one month after CPAP obtained. I will assess response to therapy and compliance at that time. Counseling Topics: Weight loss health impact Visit Type: In Office Time Spent with Patient (minutes): 21 Provider Statement: I spent 100% of the Face to Face Visit with the patient with greater than 50% spent counseling the patient and coordination of care.
== END 2022-02-01 09:33 | disposition home or self-care (01) ==
LOC: SC 09:32
PROVIDERS: ATTEND Nurse Practitioner Family
DX: G47.33 Obstructive sleep apnea (adult) (pediatric) (principal); E66.9 Obesity, unspecified; Z68.37 Body mass index [BMI] 37.0-37.9, adult
CPT/HCPCS: 99213; G0463; 99212

== ENCOUNTER 2022-05-08 08:53 | Outpatient (CLI) | payer MEDICARE, MEDICAID ==
[2022-05-08 09:21] VITALS: BP 130/76
--- NOTE | 2022-05-08 09:21 | SLEEP CARE CONSULTATION ---
Information from patient questionnaire entered by David Cheung. I have reviewed and concur with the information entered by David Cheung. This document represents the service I personally performed and the decisions made by me, Nia Watson ARNP. History of Present Illness Service Date and Time: 05/08/2022 0853 Previous diagnosis: Moderate, Obstructive Sleep Apnea-Hypopnea Syndrome AHI: 26.4 (in 2021) Reason for follow up: first compliance (SET UP 03/05, RESMED) Accompanied by: Spouse (Mangum) Equipment type: CPAP Equipment obtained from: [facility] (got initial supplies) Mask style: Nasal (tried a full face and has decided to switch back and forth) Backup mask available: Yes (other mask) Last cushion change: 1 month Prior sleep studies: Yes Year and Where: [facility] 07/2015 Type of Sleep Study: Home sleep study (F/U HOME STUDY, 01/16/2022 [facility], POS,) HPI additional information: GM SCHERER was diagnosed to have moderate, AHI 26.4, obstructive sleep apnea- hypopnea syndrome and returned today with spouse for CPAP therapy first compliance follow-up. Sleep Study - Results Type of Sleep Study: Home sleep study (F/U HOME STUDY, 01/16/2022 [facility], POS,) Prior sleep studies: Yes Year and Where: [facility] 07/2015 CPAP Compliance Data - Data Reviewed with Patient Average duration of nightly device use: 6 HOURS, 34 MINUTES Compliance rate %: 83 (03/08/22 TO 05/06/22; 53/60 days) Current pressure setting (cmH2O): 4-15 (median 10.1, avg 12.9, max 13.9) Average residual AHI: 1.3 Average large leak: 2.9 L/min Subjective Missed days of use due to: reports: mask issues Patient concerns: reports: mask discomfort, mask leak noise. denies: aerophagia, air blowing in eyes, condensation in mask/hose, nasal congestion, dry mouth, nose, throat, epistaxis Observed to snore while using device: Yes (occasional, if mask seal not right per ) Current pressure setting perceived as: too high On therapy, patient: reports: sleeping better, awakening more refreshed, being more awake and alert during the day, more rested overall. denies: drowsiness while driving Initial [place] Sleepiness Scale score: 5 (12/2021) Current [place] Sleepiness Scale score: 4 (05/08/22) Allergies and Home Medications Home medication list reviewed: Yes (put back on statin, low dose) Allergy and home medication list: Allergies Sulfa (Sulfonamide Antibiotics) Allergy (Verified 12/09/13 09:45) Hives Review of Systems Review of systems same as previous: Yes (no changes) Physical Exam Vital signs obtained and entered by: JUSTYNA LAW Blood Pressure: 130/76 (left wrist) Heart Rate: 60 O2 Saturation: 98 Height: 5 ft 4 in Weight: 222 lb Body Mass Index: 38.0 BMI Classification: Obese Impression and Plan 1. Obstructive Sleep Apnea-Hypopnea Syndrome, moderate, with good treatment c ompliance and good apnea control. On CPAP therapy, the patient has better sleep quality and is more rested overall. Patient is felt that the pressure is a little high. She gets some mask leaks with the nasal cushion. She obtained a fullface mask and does seem to like it better but wants to switch back and forth between these 2 masks. I explained to her changing the setting on her machine for the different mask cushion that she is using and she voiced understanding. The patients pressure will be changed to autoCPAP 10-12 cmH20 to reflect pressures being in used. Patient advised to contact me if pressure change is uncomfortable so that it can be adjusted. Goals for apnea control discussed. Patient's apnea severity and rationale for treatment to reduce apnea, improve sleep quality and reduce cardiovascular and cerebrovascular events was reviewed. I also reviewed the benefit of consistent device use of CPAP for hypertension, cerebrovascular disease (stroke) and epilepsy. 2. Obesity, unspecified. Currently patients BMI is 38.0. Obesity increases the risk of apnea, CPAP pressure requirements and overall health risks especially cardiovascular and diabetes. Thus patient is advised to continue to try to lose weight. Weight loss can be done with reducing portion size, reducing refined foods and balancing content with vegetables, fruit and whole grain foods. In addition, patient encouraged to get regular exercise. * Change auto CPAP pressure to 10-12 cmH2O * Notify me if snoring with mask or feeling that the pressure is too much or too little * Attempt to lose weight * Call this office if any problems using CPAP * Return for follow up in 1-2 months, or sooner if concerns arise Counseling Topics: Spare mask, Weight loss health impact Visit Type: In Office Other Participants: Spouse/Significant Other Time Spent with Patient (minutes): 21 Provider Statement: I spent 100% of the Face to Face Visit with the patient with greater than 50% spent counseling the patient and coordination of care.
== END 2022-05-08 08:54 | disposition home or self-care (01) ==
LOC: SC 08:53
PROVIDERS: ATTEND Nurse Practitioner Family
DX: G47.33 Obstructive sleep apnea (adult) (pediatric) (principal); E66.9 Obesity, unspecified; Z68.38 Body mass index [BMI] 38.0-38.9, adult
CPT/HCPCS: 99213; G0463; 99212

== ENCOUNTER 2022-05-16 11:56 | Outpatient (CLI) | payer MEDICARE, MEDICAID ==
[2022-05-16 17:51] LABS: ABSOLUTE RETICS # AUTO 0.047 10^6/uL (0.020-0.110); BASOPHILS % (AUTO) 0.4 %; EOSINOPHILS # (AUTO) 0.3 10^3/uL (0.0-0.7); EOSINOPHILS % (AUTO) 4.9 %; HCT - HEMATOCRIT 33.5 % (37.0-47.0); HGB - HEMOGLOBIN 11.5 g/dL (12.0-16.0); LYMPHOCYTES # (AUTO) 1.8 10^3/uL (1.5-3.5); MEAN CORPUSCULAR HEMOGLOBIN 26.5 pg (27.0-31.0); MEAN CORPUSCULAR HGB CONC 34.3 g/dL (32.0-36.0); MEAN CORPUSCULAR VOLUME 77.2 fL (81.0-99.0); MEAN PLATELET VOLUME 10.5 fL (7.9-10.8); MONOCYTES # (AUTO) 0.3 10^3/uL (0.0-1.0); MONOCYTES % (AUTO) 5.6 %; NEUTROPHILS # (AUTO) 3.2 10^3/uL (1.5-6.6); NEUTROPHILS % (AUTO) 56.9 %; PLT - PLATELET COUNT 303 10^3/uL (130-450); RED BLOOD COUNT 4.34 10^6/uL (4.20-5.40); RED CELL DISTRIBUTION WIDTH 13.9 % (12.0-15.0); RETICULOCYTE COUNT % (AUTO) 1.09 % (0.5-2.3); WHITE BLOOD COUNT 5.7 x10^3/uL (4.8-10.8)
[2022-05-16 18:23] LABS: CREATININE,URINE 80.9 mg/dL; MICROALBUM/CREATININE RATIO,UR 2.5 ug/mg (<30.0); MICROALBUMIN,URINE 0.2 mg/dL (0-300.0)
[2022-05-16 18:26] LABS: CALCIUM 9.2 mg/dL (8.5-10.3); CREATININE 0.5 mg/dL (0.4-1.0); POTASSIUM 3.9 mmol/L (3.5-5.0)
[2022-05-16 19:21] LABS: FOLATE > 49.60 ng/mL (5.90 - >24.8)
[2022-05-16 20:47] LABS: ESTIMATED AVERAGE GLUCOSE 120 mg/dL (70-100); HEMOGLOBIN A1c% 5.8 % (4.27-6.07)
== END 2022-05-16 11:57 | disposition home or self-care (01) ==
LOC: LAB.N 11:56
PROVIDERS: ATTEND Family Medicine
DX: D50.9 Iron deficiency anemia, unspecified (principal)
CPT/HCPCS: 36415; 80048; 82043; 82570; 82607; 82728; 82746; 83036; 83540; 84466; 85025; 85045

== ENCOUNTER 2022-07-17 09:08 | Outpatient (CLI) | payer MEDICARE, MEDICAID ==
--- NOTE | 2022-07-17 09:32 | SLEEP CARE CONSULTATION ---
Information from patient questionnaire entered by Erika Diana. I have reviewed and concur with the information entered by Erika Diana. This document represents the service I personally performed and the decisions made by me, Nia Watson ARNP. History of Present Illness Service Date and Time: 07/17/2022 0908 Previous diagnosis: Moderate, Obstructive Sleep Apnea-Hypopnea Syndrome AHI: 26.4 (in 2021) Reason for follow up: other (2 MONTH F/U PRESSURE CHNAGE ) Equipment type: CPAP Equipment obtained from: [facility] (getting supplies as needed) Mask style: Nasal (she switches with full face when congested) Backup mask available: Yes (other mask) Last cushion change: long time Prior sleep studies: Yes Year and Where: [facility] 07/2015 Type of Sleep Study: Home sleep study (F/U HOME STUDY, 01/16/2022 [facility], POS,) HPI additional information: GM SCHERER was diagnosed to have moderate, AHI 26.4, obstructive sleep apnea- hypopnea syndrome and returned today for CPAP therapy two month with pressure change follow-up. Sleep Study - Results Type of Sleep Study: Home sleep study (F/U HOME STUDY, 01/16/2022 [facility], POS,) Prior sleep studies: Yes Year and Where: [facility] 07/2015 CPAP Compliance Data - Data Reviewed with Patient Average duration of nightly device use: 6 HRS 30 MIN Compliance rate %: 78 (05/13/22-07/11/22; 50/60 days used) Current pressure setting (cmH2O): 10-12 Average residual AHI: 2.6 Central apnea: 0.0 Obstructive apnea: 1.8 Subjective Missed days of use due to: reports: family emergency (son / mother in May), travel Patient concerns: reports: mask leak noise (needs to change her mask), dry mouth, nose, throat. denies: aerophagia, mask discomfort, air blowing in eyes, condensation in mask/hose, nasal congestion, epistaxis Observed to snore while using device: No Current pressure setting perceived as: comfortable On therapy, patient: reports: sleeping better, awakening more refreshed, being more awake and alert during the day, more rested overall. denies: drowsiness while driving Initial [place] Sleepiness Scale score: 5 (12/2021) Current [place] Sleepiness Scale score: 5 (07/17/22) Allergies and Home Medications Drug allergies reviewed: Yes (Sulfa) Home medication list reviewed: Yes (no changes) Review of Systems Review of systems same as previous: Yes (no changes) Physical Exam Vital signs obtained and entered by: ERIKA Jack MA Blood Pressure: 128/84 (LEFT ARM) Cuff size: regular Heart Rate: 70 O2 Saturation: 98 Height: 5 ft 4 in Weight: 230 lb 3.2 oz Body Mass Index: 39.5 BMI Classification: Obese Impression and Plan 1. Obstructive Sleep Apnea-Hypopnea Syndrome, moderate, with good treatment compliance and good apnea control. On CPAP therapy, the patient has better sleep quality and is more rested overall. Patient has been getting good compliance despite having family emergency with in family twice in last couple months. She occasionally gets dry mouth when using her nasal cushion. If she cannot breathe through her nose she will use her full face mask. She was advised to keep mouth closed to prevent oral venting because this can cause mouth dryness. She should also change her mask because to reduce mask leaking. She voiced understanding. Patient's apnea severity and rationale for treatment to reduce apnea, improve sleep quality and reduce cardiovascular and cerebrovascular events was reviewed. I also reviewed the benefit of consistent device use of CPAP for hypertension, cerebrovascular disease (stroke) and epilepsy. 2. Obesity, unspecified. Currently patients BMI is 39.5. Obesity increases the risk of apnea, CPAP pressure requirements and overall health risks especially cardiovascular and diabetes. Thus patient is advised to lose weight. The patient's CPAP pressure range should accommodate some weight loss. Symptoms to report for additional pressure adjustment discussed. * Continue auto CPAP pressure at 10-12 cmH2O * Notify me if snoring with mask or feeling that the pressure is too much or too little * Attempt to lose weight * Call this office if any problems using CPAP * Return for follow up in 3 months, or sooner if concerns arise Counseling Topics: Spare mask, Weight loss health impact Visit Type: In Office Time Spent with Patient (minutes): 14 Provider Statement: I spent 100% of the Face to Face Visit with the patient with greater than 50% spent counseling the patient and coordination of care.
[2022-07-17 09:33] VITALS: BP 128/84
== END 2022-07-17 09:09 | disposition home or self-care (01) ==
LOC: SC 09:08
PROVIDERS: ATTEND Nurse Practitioner Family
DX: G47.33 Obstructive sleep apnea (adult) (pediatric) (principal); E66.9 Obesity, unspecified; Z68.39 Body mass index [BMI] 39.0-39.9, adult
CPT/HCPCS: 99212; G0463

== ENCOUNTER 2022-11-15 14:00 | Outpatient (CLI) | payer MEDICARE, MEDICAID ==
[2022-11-15 14:21] VITALS: BP 126/74
--- NOTE | 2022-11-15 14:21 | SLEEP CARE CONSULTATION ---
Information from patient questionnaire entered by Erika Diana. I have reviewed and concur with the information entered by Erika Diana. This document represents the service I personally performed and the decisions made by , Nia Watson ARNP. History of Present Illness Service Date and Time: 11/15/2022 1400 Previous diagnosis: Moderate, Obstructive Sleep Apnea-Hypopnea Syndrome AHI: 26.4 (in 2021) Reason for follow up: other (FOUR MONTH F/U) Equipment type: CPAP (RESMED Airsense 11 s/u 02/2022) Equipment obtained from: [facility] (getting supplies as needed) Mask style: Nasal (she switches with full face when congested) Backup mask available: Yes (other mask) Last cushion change: few days ago Prior sleep studies: Yes Year and Where: [facility] 07/2015 Type of Sleep Study: Home sleep study (F/U HOME STUDY, 01/16/2022 [facility], POS,) HPI additional information: GM SCHERER was diagnosed to have moderate, AHI 26.4, obstructive sleep apnea- hypopnea syndrome and returned today for CPAP therapy four month follow-up. Sleep Study - Results Type of Sleep Study: Home sleep study (F/U HOME STUDY, 01/16/2022 [facility], POS,) Prior sleep studies: Yes Year and Where: [facility] 07/2015 CPAP Compliance Data - Data Reviewed with Patient Average duration of nightly device use: 6 HRS 11 MINS Compliance rate %: 70 (07/17/22-11/13/22; 97/120 days used) Current pressure setting (cmH2O): 10-12 Average residual AHI: 1.2 Central apnea: 0.0 Obstructive apnea: 0.8 Hypopnea: 0.3 Average large leak: 2.9 l/min Subjective Missed days of use due to: reports: family emergency ( in hosptial with bowel obstruction, did not take machine with her) Patient concerns: denies: aerophagia, mask discomfort, air blowing in eyes, mask leak noise, condensation in mask/hose, nasal congestion, dry mouth, nose, throat, epistaxis Observed to snore while using device: No Current pressure setting perceived as: comfortable On therapy, patient: reports: sleeping better, awakening more refreshed, being more awake and alert during the day, more rested overall. denies: drowsiness while driving Initial [place] Sleepiness Scale score: 5 (12/2021) Current [place] Sleepiness Scale score: 2 (11/15/22) Allergies and Home Medications Known drug allergies: Yes (sulfa) Drug allergies reviewed: Yes Home medication list reviewed: Yes (no changes) Allergy and home medication list: Allergies Sulfa (Sulfonamide Antibiotics) Allergy (Verified 11/14/22 16:39) Hives Review of Systems Review of systems same as previous: Yes (no changes) Physical Exam Vital signs obtained and entered by: ERIKA Jack MA Blood Pressure: 126/74 (LEFT ARM) Cuff size: long Heart Rate: 70 O2 Saturation: 96 Height: 5 ft 4 in Weight: 220 lb 6.4 oz Weight change since last visit: 10 lb loss Body Mass Index: 37.8 BMI Classification: Obese Impression and Plan 1. Obstructive Sleep Apnea-Hypopnea Syndrome, moderate, with good treatment compliance and good apnea control. On CPAP therapy, the patient has better sleep quality and is more rested overall. Patient is doing well and has significant improvement of her sleep apnea. She had a reduction in her compliance because her was in hospital with a bowel obstruction and she did not bring her CPAP with her. Patient's apnea severity and rationale for treatment to reduce apnea, improve sleep quality and reduce cardiovascular and cerebrovascular events was reviewed. I also reviewed the benefit of consistent device use of CPAP for hypertension, cerebrovascular disease (stroke) and epilepsy. 2. Obesity, unspecified. Currently patients BMI is 37.8. She has lost 10 pounds since her last visit. Obesity increases the risk of apnea, CPAP pressure requirements and overall health risks especially cardiovascular and diabetes. Thus patient is advised to continue to try to lose weight. * Continue auto CPAP pressure at 10-12 cmH2O * Notify me if snoring with mask or feeling that the pressure is too much or too little * Attempt to lose weight * Call this office if any problems using CPAP * Return for follow up in 6 months, or sooner if concerns arise Counseling Topics: Spare mask, Weight loss health impact Visit Type: In Office Time Spent with Patient (minutes): 20 Provider Statement: I spent 100% of the Face to Face Visit with the patient with greater than 50% spent counseling the patient and coordination of care.
== END 2022-11-15 14:01 | disposition home or self-care (01) ==
LOC: SC 14:00
PROVIDERS: ATTEND Nurse Practitioner Family
DX: G47.33 Obstructive sleep apnea (adult) (pediatric) (principal); E66.9 Obesity, unspecified; Z68.37 Body mass index [BMI] 37.0-37.9, adult
CPT/HCPCS: 99213; G0463; 99212

== ENCOUNTER 2022-12-27 10:41 | Outpatient (CLI) | payer MEDICARE, MEDICAID ==
--- NOTE | 2022-12-28 09:51 | Mammography Report ---
BILATERAL DIGITAL SCREENING MAMMOGRAM 3D/2D: 12/27/2022 CLINICAL: Routine screening. Comparison is made to exams dated: 10/31/2021 mammogram, 09/15/2020 mammogram, 06/04/2019 mammogram, mammogram, 04/30/2017 mammogram, and 05/08/2016 mammogram - [facility]. There are scattered areas of fibroglandular density in both breasts (category b / 25%-50% glandular t issue). There are benign calcifications in both breasts. No significant masses, calcifications, or other findings are seen in either breast. There has been no significant interval change. IMPRESSION: BENIGN There is no mammographic evidence of malignancy. A 1 year screening mammogram is recommended. Based on the Tyrer Cuzick model (a risk assessment model) the patients lifetime risk is 3.1% and her 10 year risk is 2.6%. According to the ACR, ACS, and NCCN guidelines, an annual breast MRI exam sapna g with mammogram is recommended if the patients lifetime risk is 20% or greater. This exam was interpreted at Station ID: [id number]. NOTE: For mammograms, a report in lay terms will be sent to the patient. Approximately 15% of breast malignancies will not be visualized mammographically. In the management of a palpable breast mass, a negative mammogram must not discourage biopsy of a clinically suspicious lesion. Electronically Signed By: Ruiz montez/judy:12/27/2022 11:55:18 letter sent: No_Letter ACR BI-RADS Category 2: Benign Finding(s) 3342F PARENCHYMAL PATTERN: (A) - The breast(s) demonstrate(s) scattered fibroglandular densities. BI-RADS CATEGORY: (2) - 2 Mammogram [id number] 1 year screening LATERALITY: (B)
== END 2022-12-27 10:42 | disposition home or self-care (01) ==
LOC: DI.N 10:41
DX: Z12.31 Encounter for screening mammogram for malignant neoplasm of breast (principal)

== ENCOUNTER 2023-05-01 09:49 | Outpatient (CLI) | payer MEDICARE, MEDICAID ==
[2023-05-01 12:24] LABS: BASOPHILS % (AUTO) 0.4 %; EOSINOPHILS # (AUTO) 0.2 10^3/uL (0.0-0.7); EOSINOPHILS % (AUTO) 3.7 %; HCT - HEMATOCRIT 36.7 % (37.0-47.0); HGB - HEMOGLOBIN 12.2 g/dL (12.0-16.0); LYMPHOCYTES # (AUTO) 1.5 10^3/uL (1.5-3.5); LYMPHOCYTES % (AUTO) 29.9 %; MEAN CORPUSCULAR HEMOGLOBIN 25.8 pg (27.0-31.0); MEAN CORPUSCULAR HGB CONC 33.2 g/dL (32.0-36.0); MEAN CORPUSCULAR VOLUME 77.6 fL (81.0-99.0); MEAN PLATELET VOLUME 10.3 fL (7.9-10.8); MONOCYTES # (AUTO) 0.2 10^3/uL (0.0-1.0); MONOCYTES % (AUTO) 4.7 %; NEUTROPHILS # (AUTO) 3.1 10^3/uL (1.5-6.6); NEUTROPHILS % (AUTO) 61.1 %; PLT - PLATELET COUNT 311 10^3/uL (130-450); RED BLOOD COUNT 4.73 10^6/uL (4.20-5.40); RED CELL DISTRIBUTION WIDTH 15.2 % (12.0-15.0); WHITE BLOOD COUNT 5.1 x10^3/uL (4.8-10.8)
[2023-05-01 12:53] LABS: ALBUMIN 4.3 g/dL (3.2-5.5); ALBUMIN/GLOBULIN RATIO 1.5 (1.0-2.2); ALKALINE PHOSPHATASE 119 IU/L (42-121); ALT ALANINE AMINOTRANSFERASE 17 IU/L (10-60); AST ASPARTATE AMINOTRANSFERASE 19 IU/L (10-42); BILIRUBIN,TOTAL 0.3 mg/dL (0.2-1.0); BUN - BLOOD UREA NITROGEN 15 mg/dL (6-20); CALCIUM 9.4 mg/dL (8.5-10.3); CARBON DIOXIDE - CO2 29 mmol/L (21-32); CHLORIDE 106 mmol/L (101-111); CHOL/HDL RATIO 2.6 (<4.4); CHOLESTEROL 171 mg/dL; CREATININE 0.6 mg/dL (0.6-1.3); GFR - MDRD 118 (>89); GLUCOSE 111 mg/dL (74-104); HDL CHOLESTEROL 65 mg/dL; LDL CHOLESTEROL,CALCULATED 91 mg/dL; LDL/HDL RATIO 1.4 (<4.4); POTASSIUM 4.1 mmol/L (3.5-4.5); SODIUM 139 mmol/L (135-145); TOTAL PROTEIN 7.2 g/dL (6.4-8.9); TRIGLYCERIDES 73 mg/dL (48-352); VLDL CHOLESTEROL 15 mg/dL
[2023-05-01 13:40] LABS: ESTIMATED AVERAGE GLUCOSE 126 mg/dL (70-100)
[2023-05-01 13:45] LABS: THYROID STIMULATING HORMONE 1.31 uIU/mL (0.34-5.60)
== END 2023-05-01 09:50 | disposition home or self-care (01) ==
LOC: LAB.N 09:49
PROVIDERS: ATTEND Family Medicine
DX: I10 Essential (primary) hypertension (principal); E11.9 Type 2 diabetes mellitus without complications; D50.9 Iron deficiency anemia, unspecified; E66.9 Obesity, unspecified; M16.12 Unilateral primary osteoarthritis, left hip; G47.33 Obstructive sleep apnea (adult) (pediatric); E78.5 Hyperlipidemia, unspecified
CPT/HCPCS: 36415; 80053; 80061; 83036; 83721; 84443; 85025

== ENCOUNTER 2023-05-22 08:29 | Outpatient (CLI) | payer MEDICARE, MEDICAID ==
--- NOTE | 2023-05-22 08:57 | Sleep Patient Instructions ---
Sleep Center Visit Summary - Patient Visit Information Reason for Visit: 6 month followup for PAP therapy - Patient Instructions Additional Instructions: You were here for follow up of CPAP therapy. You will be continued on CPAP therapy with pressure at 10-12 cmH2O. You should follow up with sleep care in 12 months. You may contact us sooner for any questions or concerns. - Clinic Information Contact: [facility] [address] [place] [address] [email or web address] T: [phone]
--- NOTE | 2023-05-22 09:00 | SLEEP CARE CONSULTATION ---
Information from patient questionnaire entered by Nato Diana. I have reviewed and concur with the information entered by Nato Diana. This document represents the service I personally performed and the decisions made by me, Nia Watson ARNP. History of Present Illness Service Date and Time: 05/22/2023 08 Previous diagnosis: Moderate, Obstructive Sleep Apnea-Hypopnea Syndrome AHI: 26.4 (in 2021) Reason for follow up: six month (F/U) Equipment type: CPAP (RESMED Airsense 11 s/u 02/2022) Equipment obtained from: [employer] (getting supplies as needed) Mask style: Nasal pillows (she switches with full face when congested) Mask brand: Resmed (Marie FX) Backup mask available: Yes (other mask) Last cushion change: 1 week Prior sleep studies: Yes Year and Where: [facility] 07/2015 Type of Sleep Study: Home sleep study (F/U HOME STUDY, 01/16/2022 [facility], POS,) HPI additional information: GM SCHERER was diagnosed to have moderate, AHI 26.4, obstructive sleep apnea- hypopnea syndrome and returned today for CPAP therapy six month follow-up. Sleep Study - Results Type of Sleep Study: Home sleep study (F/U HOME STUDY, 01/16/2022 [facility], POS,) Prior sleep studies: Yes Year and Where: [facility] 07/2015 CPAP Compliance Data - Data Reviewed with Patient Average duration of nightly device use: 6 HRS 10 MINS Compliance rate %: 84 (11/21/22-05/19/23; 172/180 days used) Current pressure setting (cmH2O): 10-12 Average residual AHI: 0.7 Central apnea: 0 Obstructive apnea: 0.4 Hypopnea: 0.2 Average large leak: 5.1 L/min Subjective Missed days of use due to: reports: mask issues (nose soreness limiting use), illness (sinus issues) Patient concerns: reports: mask discomfort, air blowing in eyes, mask leak noise, nasal congestion, dry mouth, nose, throat (dry nose), other (headache, thinks the headgear is too tight). denies: aerophagia, condensation in mask/hose, epistaxis Observed to snore while using device: No Current pressure setting perceived as: comfortable On therapy, patient: reports: sleeping better, awakening more refreshed, being more awake and alert during the day, more rested overall. denies: drowsiness while driving Initial [place] Sleepiness Scale score: 5 (12/2021) Current [place] Sleepiness Scale score: 8 (05/22/23) Allergies and Home Medications Known drug allergies: Yes (sulfa) Drug allergies reviewed: Yes Home medication list reviewed: Yes (no changes) Allergy and home medication list: Allergies Sulfa (Sulfonamide Antibiotics) Allergy (Verified 05/21/23 12:28) Hives Review of Systems Review of systems same as previous: Yes (no changes) Physical Exam Vital signs obtained and entered by: NATO Jack MA Blood Pressure: 140/75 (LEFT) Cuff size: wrist Heart Rate: 67 O2 Saturation: 98 Height: 5 ft 4 in Weight: 224 lb 12.8 oz Body Mass Index: 38.5 BMI Classification: Obese Impression and Plan 1. Obstructive Sleep Apnea-Hypopnea Syndrome, moderate, with good treatment compliance and good apnea control. On CPAP therapy, the patient has better sleep quality and is more rested overall. She has significant improvement of her sleep apnea and is satisfied with current therapy. She has had some sinus issues and soreness inside her nose. She states it feels dry and congested. She did turn her humidity down to 4 and the "burning" sensation has improved and the soreness is reducing. Nasal dryness and congestion can be reduced with increasing the CPAP humidity. The heated hose can be adjusted higher if condensation with higher humidity setting. Saline nasal spray can be used prior to CPAP to clear nasal secretions, moisturize mucosa and wash off any nasal allergens to facilitate nasal breathing. Verbal instructions given on how to change humidity and heated hose settings with rationale explaining why to change. Patient's apnea severity and rationale for treatment to reduce apnea, improve sleep quality and reduce cardiovascular and cerebrovascular events was reviewed. I also reviewed the benefit of consistent device use of CPAP for hypertension, cerebrovascular disease (stroke) and epilepsy. 2. Obesity, unspecified. Currently patients BMI is 38.5. Obesity increases the risk of apnea, CPAP pressure requirements and overall health risks especially cardiovascular and diabetes. Thus patient is advised to lose weight. * Continue auto CPAP pressure at 10-12 cmH2O * Notify me if snoring with mask or feeling that the pressure is too much or too little * Attempt to lose weight * Call this office if any problems using CPAP * Return for follow up in 1 year, or sooner if concerns arise Counseling Topics: Spare mask, Weight loss health impact Follow up with Sleep Care in: 1 year Visit Type: In Office Time Spent with Patient (minutes): 23 Provider Statement: I spent 100% of the Face to Face Visit with the patient with greater than 50% spent counseling the patient and coordination of care.
[2023-05-22 09:09] VITALS: BP 140/75; O2SAT 98
== END 2023-05-22 08:30 | disposition home or self-care (01) ==
LOC: SC 08:29
PROVIDERS: ATTEND Nurse Practitioner Family
DX: G47.33 Obstructive sleep apnea (adult) (pediatric) (principal); E66.9 Obesity, unspecified; Z68.38 Body mass index [BMI] 38.0-38.9, adult
CPT/HCPCS: 99213; G0463; 99212

== ENCOUNTER 2023-10-25 06:28 | Emergency (ER) | payer MEDICARE, MEDICAID ==
[2023-10-25] MEDS: diphenhydrAMINE INJ 50 MG/ML VIAL IVP STA (07:35)
[2023-10-25] MEDS: SODIUM CHLORIDE 0.9% 1,000 ML IV STA (07:36)
[2023-10-25] MEDS: METOCLOPRAMIDE 10 MG/2 ML VIAL IVP STA (07:36)
[2023-10-25] MEDS: KETOROLAC 15 MG/ML VIAL IVP STA (07:36)
--- NOTE | 2023-10-25 08:13 | ED Physician Documentation ---
PD HPI HEADACHE - Stated complaint Stated Complaint: HEAD PRESSURE - Chief complaint Chief Complaint: Neuro - History obtained from History obtained from: Patient - Additional information Additional information: Patient is a 73-year-old female with a history of a seizure disorder on carbamazepine presenting for evaluation of a dull throbbing frontal headache that has been present over the last 3 months. Patient states that the pain is present most days and worse in the evenings. She has been to see her PCP as well as the walk-in clinic for this. At 1 point she was having discomfort in the left ear And had the earwax irrigated out of it which resolved that issue but did not resolve her head pain. She was seen at the walk-in clinic on Saturday and started on Cortisporin eardrops as well as Augmentin for a presumed ear infection although again patient reports she does not have any ear discomfort. She has tried acetaminophen without improvement. She does not currently see a neurologist. She says the pain was more constant yesterday. No associated photophobia, nausea, vomiting, fever. No URI symptoms.She does not take a blood thinner. She was seen at [facility] in August for this and did have a CT scan which she was told did not have any significant findings. Review of Systems Constitutional: denies: Fever Nose: denies: Congestion Cardiac: denies: Chest pain / pressure Respiratory: denies: Dyspnea GI: denies: Abdominal Pain Neurologic: reports: Headache PD PAST MEDICAL HISTORY - Past Medical History Past Medical History: Yes Cardiovascular: Hypertension, High cholesterol Endocrine/Autoimmune: Type 2 diabetes GI: None : None Psych: None Musculoskeletal: Osteoarthritis Derm: None - Past Surgical History Past Surgical History: Yes Ortho: Shoulder arthroplasty /[employer]: section - Present Medications Home Medications: Ambulatory Orders Medication Instructions Recorded Confirmed Acetaminophen [Tylenol] 650 mg PO DAILY 12/09/13 10/25/23 Aspirin Chewable [St [place]run[place] 81 mg PO DAILY 12/09/13 10/25/23 Aspirin] Cholecalciferol (Vitamin D3) 1 cap PO DAILY 12/09/13 10/25/23 [Vitamin D] Losartan [Cozaar] 25 mg PO DAILY 12/09/13 10/25/23 Lovastatin 40 mg PO DAILY 12/09/13 10/25/23 carBAMazepine [TEGretol] 200 mg PO TID 12/09/13 10/25/23 - Allergies Allergies/Adverse Reactions: Allergies Allergy/AdvReac Type Severity Reaction Status Date / Time Sulfa (Sulfonamide Allergy Hives Verified 10/25/23 06:45 Antibiotics) - Social History Does the pt smoke?: No Smoking Status: Never smoker Does the pt drink ETOH?: No Does the pt have substance abuse?: No - Immunizations Immunizations are current?: Yes - POLST Patient has POLST: No PD ED PE NORMAL - General General: Alert and oriented X 3, No acute distress, Well developed/nourished - HEENT HEENT: Atraumatic, PERRL, EOMI, Ears normal (Small cerumen in left ear canal, TM appears intact, no erythema), Moist mucous membranes, Pharynx benign - Neck Neck: Supple, no meningeal sign - Cardiac Cardiac: RRR, Strong equal pulses - Respiratory Respiratory: No respiratory distress, Clear bilaterally - Abdomen Abdomen: Soft, Non tender - Derm Derm: Warm and dry - Extremities Extremities: No edema - Neuro Neuro: Alert and oriented X 3, switchboard manager 2-12 intact, No motor deficit, No sensory deficit, Normal speech Eye Opening: Spontaneous Motor: Obeys Commands Verbal: Oriented GCS Score: 15 Results - Vitals Vitals: Vital Signs - 24 hr 10/25/23 10/25/23 10/25/23 06:40 07:19 09:52 Temperature 36.9 C Heart Rate 65 59 L 55 L Respiratory 18 16 16 Rate Blood Pressure 182/88 H 178/91 H 164/96 H O2 Saturation 100 98 99 Oxygen O2 Source Room air PD Medical Decision Making - ED course Complexity details: re-evaluated patient ED course: Patient is a 73-year-old female presenting for evaluation of a headache that has been ongoing for the past 3 months. Normal neuroexam. No head injury or trauma. Does not take a blood thinner. Had negative CT scan of the head obtained in the ER 2 months ago at [facility]. I was able to review these records. No signs of meningitis or subarachnoid hemorrhage. Patient was given IV fluids, ketorolac, Reglan, Benadryl and Decadron with improvement in her headache. Recommend close follow-up with PCP as well as possible referral to neurology given a duration of symptoms. Patient counseled on concerning symptoms to return for. She is ambulatory at discharge. 0929 - Sleeping, Feeling better. Departure - Departure Disposition: 01 Home, Self Care Clinical Impression: Headache Condition: Stable Instructions: ED Cephalgia Unspecified Follow-Up: Dereje Rooney MD [Primary Care Provider] - Within 1 week Comments: You were treated for headache today. I was able to review your CT scan from [facility] in August. I would recommend close follow-up with Dr. Sanders and you would likely benefit from a neurology referral given the duration of your symptoms. Please continue with acetaminophen, hydration and rest. Return to the ER with any worsening symptoms. Forms: PCP List Discharge Date/Time: 10/25/23 10:02
[2023-10-25] MEDS: DEXAMETHASONE 10 MG/ML VIAL IVP STA (08:59)
[2023-10-25 10:01] VITALS: BP 164/96; O2SAT 99
== END 2023-10-25 10:02 | disposition home or self-care (01) ==
LOC: ED 06:28
DX: R51.9 Headache, unspecified (principal); I10 Essential (primary) hypertension; E11.9 Type 2 diabetes mellitus without complications
CPT/HCPCS: 96374; 96375; 99283; 99285; J1200; J2765

== ENCOUNTER 2023-11-05 14:08 | Outpatient (CLI) | payer MEDICARE, MEDICAID ==
[2023-11-05 18:11] LABS: CALCIUM 9.6 mg/dL (8.5-10.3); CREATININE 0.7 mg/dL (0.6-1.3)
[2023-11-05 21:13] LABS: ESTIMATED AVERAGE GLUCOSE 131 mg/dL (70-100); HEMOGLOBIN A1c% 6.2 % (4.27-6.07)
== END 2023-11-05 14:09 | disposition home or self-care (01) ==
LOC: LAB.N 14:08
PROVIDERS: ATTEND Family Medicine
DX: E11.9 Type 2 diabetes mellitus without complications (principal)
CPT/HCPCS: 36415; 80048; 83036

== ENCOUNTER 2023-12-06 07:10 | Outpatient (CLI) | payer MEDICARE, MEDICAID ==
--- NOTE | 2023-12-06 18:46 | MRI Report ---
PROCEDURE: MRI cervical spine without contrast INDICATIONS: HEADACHE, OCCIPITAL NEURALGIA TECHNIQUE: Multiplanar multisequential MRI of the cervical spine was obtained without contrast. COMPARISON: None. FINDINGS: Alignment and Curvature: There is reversal of normal cervical lordosis Bone Marrow: Marrow demonstrates normal overall signal. Spinal Cord: Visualized spinal cord has normal size and signal. No cerebellar tonsillar herniation. Paraspinal Soft Tissues: No paravertebral masses. Prevertebral soft tissues are normal in thickness . C2-C3: Normal in appearance. C3-C4: Disc spaces maintained. Posterior disc osteophyte results in moderate central stenosis. Hyper trophic facet joints. Moderate right and mild left foraminal stenosis C4-C5: Disc space narrowing with asymmetric left posterior disc osteophyte complex results in modera te central stenosis with flattening the ventral cord. Moderate bilateral foraminal stenosis greater o n the left. C5-C6: Disc space narrowing posterior disc osteophyte complex asymmetric to the left results in mode rate central stenosis with flattening the ventral surface cord. Moderate bilateral foraminal stenosis C6-C7: Disc space narrowing posterior disc osteophyte complex results in mild to moderate central st enosis. Moderate bilateral foraminal stenosis is greater than right. C7-T1: Disc space narrowing and hypertrophic arthropathy without central stenosis. Mild bilateral fo raminal stenosis IMPRESSION: Multilevel degenerative disc disease and arthropathy results in varying degrees of central and forami nal stenosis including moderate central stenosis at C3-4, C4-5 and C5-6 Reviewed by: Stan Aldrich MD on 12/06/2023 5:45 PM NELI Approved by: Stan Aldrich MD on 12/06/2023 5:45 PM AKMICHAEL Station ID: [id number]
--- NOTE | 2023-12-06 19:00 | MRI Report ---
PROCEDURE: MRI brain without contrast INDICATIONS: HEADACHE, OCCIPITAL NEURALGIA TECHNIQUE: Multiplanar multisequential MR images of the brain were obtained without contrast COMPARISON: None FINDINGS: CSF Spaces: Basal cisterns are patent. No extra-axial fluid collections. Ventricles are normal in size and shape. Brain: No intracranial masses or hemorrhage. Beltran/white matter interface is normal. Brainstem appe ars normal. Diffusion-weighted images shows no evidence of acute infarct. Normal intravascular flow voids are present. 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 Skull and face: Calvarium has normal marrow signal. Orbits appear normal. Incidental hyperostosis frontalis interna noted. Bilateral intraocular lens replacements noted. Sinuses: Left mastoid fluid may be inflammatory or postinflammatory IMPRESSION: Atrophy and chronic ischemic change without acute infarct, hemorrhage or mass lesion. 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 Left mastoid fluid may be inflammatory or post inflammatory Reviewed by: Stan Aldrich MD on 12/06/2023 5:58 PM NELI Approved by: Stan Aldrich MD on 12/06/2023 5:58 PM AKMICHAEL Station ID: [id number]
== END 2023-12-06 07:11 | disposition home or self-care (01) ==
LOC: DI 07:10
PROVIDERS: ATTEND Family Medicine
DX: R51.9 Headache, unspecified (principal); M54.81 Occipital neuralgia; I67.82 Cerebral ischemia; G31.9 Degenerative disease of nervous system, unspecified

== ENCOUNTER 2024-04-27 10:39 | Outpatient (CLI) | payer MEDICARE, MEDICAID ==
[2024-04-27 19:00] LABS: BASOPHILS % (AUTO) 0.4 %; EOSINOPHILS # (AUTO) 0.3 10^3/uL (0.0-0.7); EOSINOPHILS % (AUTO) 5.2 %; HCT - HEMATOCRIT 35.8 % (37.0-47.0); HGB - HEMOGLOBIN 11.9 g/dL (12.0-16.0); LYMPHOCYTES # (AUTO) 1.6 10^3/uL (1.5-3.5); LYMPHOCYTES % (AUTO) 32.3 %; MEAN CORPUSCULAR HEMOGLOBIN 26.4 pg (27.0-31.0); MEAN CORPUSCULAR HGB CONC 33.2 g/dL (32.0-36.0); MEAN CORPUSCULAR VOLUME 79.4 fL (81.0-99.0); MEAN PLATELET VOLUME 10.4 fL (7.9-10.8); MONOCYTES # (AUTO) 0.2 10^3/uL (0.0-1.0); MONOCYTES % (AUTO) 4.2 %; NEUTROPHILS # (AUTO) 2.9 10^3/uL (1.5-6.6); NEUTROPHILS % (AUTO) 57.7 %; PLT - PLATELET COUNT 300 10^3/uL (130-450); RED BLOOD COUNT 4.51 10^6/uL (4.20-5.40)
[2024-04-27 19:12] LABS: ALBUMIN 4.2 g/dL (3.2-5.5); ALBUMIN/GLOBULIN RATIO 1.5 (1.0-2.2); ALKALINE PHOSPHATASE 95 IU/L (42-121); ALT ALANINE AMINOTRANSFERASE 15 IU/L (10-60); AST ASPARTATE AMINOTRANSFERASE 16 IU/L (10-42); BILIRUBIN,TOTAL 0.3 mg/dL (0.2-1.0); BUN - BLOOD UREA NITROGEN 13 mg/dL (6-20); CARBON DIOXIDE - CO2 29 mmol/L (21-32); CHLORIDE 104 mmol/L (101-111); CHOL/HDL RATIO 2.6 (<4.4); CHOLESTEROL 172 mg/dL; CREATININE 0.7 mg/dL (0.6-1.3); GFR - MDRD 99 (>89); GLUCOSE 101 mg/dL (74-104); HDL CHOLESTEROL 67 mg/dL; LDL CHOLESTEROL,CALCULATED 86 mg/dL; LDL/HDL RATIO 1.3 (<4.4); POTASSIUM 4.2 mmol/L (3.5-4.5); SODIUM 139 mmol/L (135-145); TRIGLYCERIDES 94 mg/dL; VLDL CHOLESTEROL 19 mg/dL
[2024-04-27 19:27] LABS: THYROID STIMULATING HORMONE 0.75 uIU/mL (0.34-5.60)
[2024-04-27 20:24] LABS: ESTIMATED AVERAGE GLUCOSE 137 mg/dL (70-100); HEMOGLOBIN A1c% 6.4 % (4.27-6.07)
== END 2024-04-27 10:40 | disposition home or self-care (01) ==
LOC: LAB.N 10:39
PROVIDERS: ATTEND Family Medicine
DX: G40.209 Localization-related (focal) (partial) symptomatic epilepsy and epileptic syndromes with complex partial seizures, not intractable, without status epilepticus (principal)
CPT/HCPCS: 36415; 80053; 80061; 83036; 83721; 84443; 85025